=== PATIENT | female | born 1940 | race Two or more races ===

== ENCOUNTER 2024-11-12 14:44 | Inpatient (IN) | payer OTHER ==
[~2024-11-12] VITALS: Ht 160 cm; Wt 68.0 kg
[~2024-11-12 14:44] MED LIST: ALEVE220 M1 PO; CEFADROXIL500 MG PO; PERCOCET 5/3251 TAB PO
--- NOTE | 2024-11-12 15:10 | NUR ---
PACIENTE ALERTA Y ORIENTADA X3 LA MISMA HARIKA KHADAR RECETA DE TRANFUCION YA QUE LA MISMA REFIERE QUE LA TIENE EN 6.7. S/V ESTABLES DENTRO DE RAMOS CONDICION. PACIENTE EN LEAH CON BARANDAS ELEVADAS EN ESPERA DE EVALUACION MEDICA.
[2024-11-12 17:14] LABS: BASO % 0.2 % (0.1-1.2); EOS # 0.00 (0.04-0.54); EOS % 0.0 % (0.7-7.0); LYMPH # 1.45 (1.18-3.74); LYMPH % 13.6 % (19.3-53.1); MEAN PLATELET VOLUME 9.20 fl (9.4-12.4); MONO # 0.17 (0.24-0.82); MONO % 1.6 % (4.7-12.5); NEUT # 8.66 (1.56-6.13); NEUT % 81.3 % (34.0-71.1); RED CELL DISTRIBUTION WIDTH 24.2 % (11.6-14.4)
[2024-11-12 17:35] LABS: BUN CREA RATIO 28.0 (7.0-25.0); CREATININE SERUM 0.99 mg/dL (0.55-1.02); GFR 53.18; GLUCOSE FASTING 139.0 mg/dL (65-100); OSMOLALITY SERUM 296.0 MOSM/KG (275-295)
[2024-11-12 17:39] LABS: INR 0.95
[2024-11-12] MEDS ORDERED: METHYLPREDNISOLONE SOD SUCC 40 MG VIAL IV SCH (21:19)
[2024-11-12] MEDS ORDERED: PANTOPRAZOLE SODIUM 40 MG in 0.9 % SODIUM CHLORIDE 8 ML IV PUSH SCH (21:44)
[2024-11-12] MEDS ORDERED: LISINOPRIL 10 MG TABLET PO SCH (21:44)
[2024-11-12] MEDS ORDERED: AMLODIPINE BESYLATE 5 MG TABLET PO SCH (21:44)
[2024-11-12] MEDS ORDERED: 0.9 % SODIUM CHLORIDE 1,000 ML IV SCH (22:00)
[2024-11-13 04:00] VITALS: BP 114/60; O2SAT 97
[2024-11-13 05:03] VITALS: BP 115/70; O2SAT 98
[2024-11-13 08:59] VITALS: BP 118/52; O2SAT 99
[2024-11-13 15:53] LABS: BUN CREA RATIO 31.0 (7.0-25.0); CREATININE SERUM 1.03 mg/dL (0.55-1.02); GFR 50.81; GLUCOSE FASTING 119.0 mg/dL (65-100); OSMOLALITY SERUM 300.0 MOSM/KG (275-295)
[2024-11-13 18:19] VITALS: BP 108/68; O2SAT 96
[2024-11-13] MEDS ORDERED: CLONAZEPAM 0.5 MG TABLET PO SCH (21:00)
[2024-11-14 01:53] VITALS: BP 117/49; O2SAT 95
[2024-11-14] MEDS ORDERED: METHYLPREDNISOLONE SOD SUCC 40 MG VIAL IV SCH (09:00)
[2024-11-14 09:36] VITALS: BP 122/72; O2SAT 98
[2024-11-14 17:59] VITALS: BP 115/66; O2SAT 97
[2024-11-15 01:49] VITALS: BP 136/63; O2SAT 95
[2024-11-15 08:12] VITALS: BP 123/77
[2024-11-15 19:21] VITALS: BP 130/72; O2SAT 96
[2024-11-15 23:00] VITALS: BP 146/74; O2SAT 95
[2024-11-16 09:30] VITALS: BP 129/74
[2024-11-16 17:54] VITALS: BP 115/76
[2024-11-17 01:21] VITALS: BP 147/75; O2SAT 92
[2024-11-17] MEDS ORDERED: METHYLPREDNISOLONE SOD SUCC 40 MG VIAL IV PRN (03:45)
[2024-11-17] MEDS ORDERED: DIPHENHYDRAMINE HCL 50 MG/ML VIAL 1ML IV PRN (03:45)
[2024-11-17 08:58] VITALS: BP 133/65; O2SAT 95
[2024-11-17 18:36] LABS: BASO % 0.1 % (0.1-1.2); EOS # 0.00 (0.04-0.54); EOS % 0.0 % (0.7-7.0); LYMPH # 0.96 (1.18-3.74); LYMPH % 8.4 % (19.3-53.1); MEAN PLATELET VOLUME 9.00 fl (9.4-12.4); MONO # 0.40 (0.24-0.82); MONO % 3.5 % (4.7-12.5); NEUT # 9.86 (1.56-6.13); NEUT % 86.0 % (34.0-71.1); RED CELL DISTRIBUTION WIDTH 22.7 % (11.6-14.4)
[2024-11-17 21:03] VITALS: BP 131/66
[2024-11-18 02:34] VITALS: BP 120/73; O2SAT 91
[2024-11-18 06:48] LABS: BASO % 0.2 % (0.1-1.2); EOS # 0.00 (0.04-0.54); EOS % 0.0 % (0.7-7.0); LYMPH # 1.08 (1.18-3.74); LYMPH % 8.7 % (19.3-53.1); MEAN PLATELET VOLUME 9.50 fl (9.4-12.4); MONO # 0.33 (0.24-0.82); MONO % 2.6 % (4.7-12.5); NEUT # 10.79 (1.56-6.13); NEUT % 86.4 % (34.0-71.1); RED CELL DISTRIBUTION WIDTH 23.4 % (11.6-14.4)
[2024-11-18 07:34] LABS: BILIRUBIN TOTAL 1.97 mg/dL (0.3-1.2); BILIRUBIN,CONJUGATED 0.53 mg/dL (0.0-0.2)
[2024-11-18 08:51] VITALS: BP 145/70; O2SAT 94
[2024-11-19 07:11] LABS: hav igm Negative (Negative); hep b c Negative (Negative); hep b s ag Negative (Negative)
[2024-11-19 09:08] LABS: HAPTOGLOBIN 19 mg/dL (41-333)
== END 2024-11-18 15:14 | disposition home or self-care (01) | DRG 812 ==
LOC: ER 14:44 → MEDI 22:36
PROVIDERS: Emergency Medicine; Internal Medicine Hematology & Oncology; ADMIT Student in an Organized Health Care Education/Training Program; ATTEND Student in an Organized Health Care Education/Training Program
PROC: 30233N1 Transfusion of Nonautologous Red Blood Cells into Peripheral Vein, Percutaneous Approach (ICD-10-PCS; principal; 2024-11-17)
PROC: BW24ZZZ Computerized Tomography (CT Scan) of Chest and Abdomen (ICD-10-PCS; 2024-11-17)
DX: D64.9 Anemia, unspecified (principal); D59.11 Warm autoimmune hemolytic anemia; I10 Essential (primary) hypertension